=== PATIENT | female | born 1990 | race Two or more races ===

== ENCOUNTER 2024-10-31 09:41 | Outpatient (CLI) | payer OTHER ==
[~2024-10-31 09:41] MED LIST: FOLIC ACID1 MG PO; PRENATAL TABLE1 EAC1 PO
== END 2024-10-31 09:42 | disposition home or self-care (01) ==
LOC: PRENATAL 09:41
PROVIDERS: ATTEND Obstetrics & Gynecology Maternal & Fetal Medicine
DX: O44.00 Complete placenta previa NOS or without hemorrhage, unspecified trimester (principal); Z14.8 Genetic carrier of other disease; Z3A.22 22 weeks gestation of pregnancy

== ENCOUNTER → 2025-01-16 15:00 | Outpatient (CLI) | payer OTHER | END | disposition home or self-care (01) | LOC: PRENATAL 15:00 | PROVIDERS: ATTEND Obstetrics & Gynecology Maternal & Fetal Medicine | DX: O26.849 Uterine size-date discrepancy, unspecified trimester (principal); O36.8199 Decreased fetal movements, unspecified trimester, other fetus; O99.019 Anemia complicating pregnancy, unspecified trimester; Z14.8 Genetic carrier of other disease; Z3A.33 33 weeks gestation of pregnancy ==

== ENCOUNTER 2025-03-08 05:28 | Inpatient (IN) | payer OTHER ==
[~2025-03-08] VITALS: Ht 165.1 cm; Wt 3.2 kg
[2025-03-08 05:54] VITALS: BP 124/72
[2025-03-08 06:43] LABS: HEMATOCRIT 33.9 % (36.0-45.00); HEMOGLOBIN 11.6 g/dL (12.0-15.00); MEAN CELL VOLUME 89.5 fL (80.00-100.00); MEAN CORPUSCULAR HEMOGLOBIN 30.7 pg (27.00-32.0); MEAN CORPUSCULAR HGB CONC 34.3 g/dl (32.0-36.0); PLATELET COUNT 225 K/uL (150-450); RED BLOOD COUNT 3.79 M/uL (4.00-6.00); RED CELL DISTRIBUTION WIDTH 13.9 % (11.5-14.5)
[2025-03-08 06:56] LABS: URINE APPEARANCE Clear; URINE BILIRRUBIN Negative (NEGATIVE); URINE BLOOD Negative; URINE COLOR Yellow; URINE GLUCOSE Negative (NEGATIVE); URINE KETONE Negative (NEGATIVE); URINE LEUKOCYTE Trace; URINE NITRATE Negative; URINE PROTEIN Negative (NEGATIVE); URINE UROBILINOGEN 0.2 E.U./dl
[2025-03-08 07:00] LABS: URINE BACTERIA 1721.8 uL (0.0-1933); URINE EPITHELIAL CELLS 200.6 uL (0.0-38.8); URINE RBC 8.8 uL (0.0-20.8); URINE WBC 31.9 uL (0.0-23.2)
[2025-03-08 07:16] LABS: INR 0.95; PARTIAL THROMBOPLASTIN TIME 28.4 SECONDS (22.0-34.0); PROTHROMBIN TIME 10.4 SECONDS (9.0-11.5)
[2025-03-08 07:24] LABS: URINE CAST 0.14 uL (0.0-1.40)
[2025-03-08 07:31] VITALS: BP 127/72
[2025-03-08 12:00] VITALS: BP 126/62
[2025-03-08] MEDS ORDERED: OXYTOCIN 20 UNITS/500ML RL PIGGYBAG IV ONE (12:31)
[2025-03-08] MEDS ORDERED: OXYTOCIN 500 ML IV SCH (13:00)
[2025-03-08 15:32] VITALS: BP 132/66
[2025-03-08] MEDS ORDERED: MORPHINE SULFATE 4 MG/ML CARTRIDGE IV STA (18:37)
[2025-03-08 18:46] VITALS: BP 137/61
[2025-03-08] MEDS ORDERED: OXYTOCIN 10 UNITS/ML VIAL ONE ×2 (20:15→23:36)
[2025-03-08] MEDS ORDERED: ERYTHROMYCIN BASE OPHT 1GM EACH TUBE OP ONE (20:15)
[2025-03-08] MEDS ORDERED: CEFAZOLIN SODIUM 1,000 MG VIAL ONE (20:50)
[2025-03-08] MEDS ORDERED: KETOROLAC TROMETHAMINE 60 MG VIAL IM STA (22:44)
[2025-03-08] MEDS ORDERED: RINGERS SOLUTION,LACTATED 1,000 ML IV SCH (22:45)
[2025-03-08] MEDS ORDERED: ACETAMINOPHEN WITH CODEINE 1 UDTAB TABLET PO PRN (22:45)
[2025-03-08] MEDS ORDERED: CHLORHEXIDINE GLUCONATE 120 ML BOTTLE TP SCH (22:45)
[2025-03-08] MEDS ORDERED: MORPHINE SULFATE 4 MG/ML VIAL IV PRN (22:45)
[2025-03-08] MEDS ORDERED: OXYTOCIN 1,000 ML IV SCH (22:45)
[2025-03-08] MEDS ORDERED: MORPHINE SULFATE 4 MG/ML VIAL IV ONE (23:00)
[2025-03-09] VITALS: BP 124/71
[2025-03-09 00:52] LABS: HEMATOCRIT 31.2 % (36.0-45.00); MEAN CELL VOLUME 90.4 fL (80.00-100.00); MEAN CORPUSCULAR HGB CONC 33.9 g/dl (32.0-36.0); PLATELET COUNT 199 K/uL (150-450); RED BLOOD COUNT 3.45 M/uL (4.00-6.00); RED CELL DISTRIBUTION WIDTH 13.9 % (11.5-14.5)
[2025-03-09 00:57] LABS: HEMOGLOBIN 10.6 g/dL (12.0-15.00); MEAN CORPUSCULAR HEMOGLOBIN 30.7 pg (27.00-32.0)
[2025-03-09 08:51] VITALS: BP 121/70
[2025-03-09] MEDS ORDERED: SIMETHICONE 125 MG CAPSULE PO SCH (14:19)
[2025-03-09 16:33] VITALS: BP 126/74
[2025-03-09 20:41] VITALS: BP 117/78
[2025-03-10 01:00] VITALS: BP 114/57
[2025-03-10 08:00] VITALS: BP 104/69
[2025-03-10] MEDS ORDERED: BISACODYL 10 MG/SUPP.RECT SUPP.RECT RECTAL NR (13:30)
[2025-03-10] MEDS ORDERED: DOCUSATE SODIUM 100MG CAP PO SCH (17:00)
[2025-03-10 17:26] VITALS: BP 110/72
[2025-03-10] MEDS ORDERED: ACETAMINOPHEN WITH CODEINE 1 UDTAB TABLET PO PRN (23:45)
[2025-03-11] VITALS: BP 107/63
[2025-03-11 08:00] VITALS: BP 117/80
== END 2025-03-11 11:55 | disposition home or self-care (01) | DRG 788 ==
LOC: OB/GYN 05:28 → LDR 05:28 → O/R 20:29 → OB/GYN 22:08
PROVIDERS: ADMIT Obstetrics & Gynecology; ATTEND Obstetrics & Gynecology
PROC: 4A1HXCZ Monitoring of Products of Conception, Cardiac Rate, External Approach (ICD-10-PCS; 2025-03-08)
PROC: 10D00Z1 Extraction of Products of Conception, Low, Open Approach (ICD-10-PCS; principal; 2025-03-08 20:00)
DX: O36.8330 Maternal care for abnormalities of the fetal heart rate or rhythm, third trimester, not applicable or unspecified (principal); O69.89X0 Labor and delivery complicated by other cord complications, not applicable or unspecified; O64.0XX0 Obstructed labor due to incomplete rotation of fetal head, not applicable or unspecified; Z3A.39 39 weeks gestation of pregnancy; Z37.0 Single live birth